=== PATIENT | female | born 1995 | race Caucasian/White ===

== ENCOUNTER 2016-12-30 09:37 | Inpatient (IN) | payer SELFPAY ==
--- NOTE | ~2016-12-30 | HP ---
Unit #: [id number] #: [id number] Patient: KENZIE DUNCAN [id number] [place] [address] [id number] I MR#: [id number] NAME: KENZIE DUNCAN ROOM: [facility] Age: 21 Sex: F Admission Date: 12/30/2016 : 1995 Attending Physician: Gonsalo Mitchell M.D. Admitting Physician: Gonsalo Mitchell M.D. Primary Care Physician: Generic Doctor Not In System HISTORY AND PHYSICAL HISTORY OF PRESENT ILLNESS Kenzie is a 21 year old admitted to [address] [place] [address] with depression and verbalizing wanting to hurt herself. PAST MEDICAL HISTORY Obesity. PAST SURGICAL HISTORY T and A. ALLERGIES No known drug allergies. SOCIAL HISTORY She denies cigarettes, alcohol and illicit drug use. FAMILY HISTORY Medically noncontributory. REVIEW OF SYSTEMS CONSTITUTIONAL: No fever or chills. HEENT: Denies any sore throat, ear pain or runny nose. CARDIOVASCULAR: Denies chest pain, irregular heart rhythm or palpitations. CHEST: Denies shortness of breath or cough. No hemoptysis. GASTROINTESTINAL: Denies nausea, vomiting, diarrhea or chronic constipation. ENDOCRINE: Denies history of increased thirst or urination. No recent significant weight loss or gain. GENITOURINARY: Denies dysuria, frequency, or hematuria. SKIN: Denies any rashes. HEMATOLOGIC: Denies history of increased bleeding or bruising. MUSCULOSKELETAL: Denies any hot, swollen joints. No generalized muscle pain. NEUROLOGIC: Denies problems with vision or speech. No frequent, severe headaches. No numbness, tingling or weakness in any extremities. Denies loss of bladder or bowel control. CURRENT MEDICATIONS 1. Melatonin 5 mg q.h.s. p.r.n. 2. Milk of Magnesia p.r.n. 3. Maalox p.r.n. 4. Tylenol p.r.n. 5. Prozac 30 mg daily. Unit #: [id number] #: [id number] Patient: KENZIE DUNCAN PHYSICAL EXAMINATION GENERAL: Alert, obese, in no apparent distress. VITAL SIGNS: Blood pressure 122/80, heart rate 74, respirations 16, temperature 98.6. WEIGHT: 202. HEIGHT: 5 feet 9 inches. SKIN: Warm and dry without rash or lesion. HEENT: Normocephalic. TMs not viewed. Oral and nasal passages clear. Conjunctivae clear. PERRLA. EOMs intact. NECK: Supple without lymphadenopathy or thyromegaly. HEART: Regular rate and rhythm without murmur. LUNGS: Clear. ABDOMEN: Soft, nontender. : Not done. EXTREMITIES: No evidence of cyanosis, clubbing or edema. Moves all without focal deficit. NEUROLOGICAL: Grossly within normal limits. Cranial Nerves: II: Visual olsen are intact. III, IV AND : Extraocular movements are intact. Pupils are equal, round and reactive to light. V: Facial sensation is grossly normal. VII: Facial movements and expression are normal. VIII: Auditory acuity grossly intact. IX, X: Uvula is midline. Phonation is normal. XI: Patient shrugs shoulders and turns head normally. XII: Tongue protrudes in the midline. Sensory and Motor Function: Sensory and motor sensation is grossly normal. Motor: moves all extremities well. Coordination: Gait is normal. Deep Tendon Reflexes: Intact. IMPRESSION Psychiatric admission. RECOMMENDATIONS PSYCHIATRIC: Per psychiatrist. MEDICAL: See no contraindications to participate in facility's activities. MEDICAL PROGNOSIS Good. MEDICAL CONDITION Stable. Dictated by... Deborah Nunez PDarleneADarlene-Kiana. for Sabra Grullon/pauline TD: 12/30/2016 21:50 JOB #: [id number] Unit #: [id number] #: [id number] Patient: KENZIE DUNCAN HISTORY AND PHYSICAL Page 1 of 1 X Deborah Nunez HISTORY AND PHYSICAL
--- NOTE | ~2016-12-30 | DS ---
Unit #: [id number] #: [id number] Patient: KENZIE DUNCAN [id number] [facility] [address] [place] [address] [id number] MR#: [id number] NAME: KENZIE DUNCAN ROOM: [facility] Age: 21 Sex: F Admission Date: 12/30/2016 : 1995 Discharge Date: 01/01/2017 Attending Physician: Gonsalo Mitchell M.D. Primary Care Physician: Generic Doctor Not In System DISCHARGE SUMMARY REASON FOR ADMISSION The patient is a 29-year-old single white female who is a student at [employer]. She is admitted after she has had feelings of possible suicidal ideation. HOSPITAL COURSE The patient was admitted to the [facility] unit and placed on suicide precautions. Home medications specifically melatonin and Prozac 30 mg daily were continued. The patient reported no suicidal ideation. She had been tearful that she had "thought she was getting to feel suicidal, however, those thoughts did not progressed," and by 01/01, the patient was requesting discharge, and discharge was arranged. FINAL DIAGNOSIS Dysthymic disorder. DISPOSITION ON DISCHARGE The patient is discharged on the following medications, Prozac 30 mg daily for depression. DISCHARGE INSTRUCTIONS No dietary or physical restrictions were placed on the patient at the time of discharge. FOLLOWUP She will follow up through the auspices of community mental health resources in the [facility], and through the auspices of Student Health Services at [employer]. PROGNOSIS Her prognosis is considered fair. Dictated by... Gonsalo Mitchell M.D. CB/waldo TD: 01/02/2017 02:17 JOB #: [id number] Unit #: [id number] #: [id number] Patient: KENZIE DUNCAN DISCHARGE SUMMARY Page 1 of 1 X Gonsalo Mitchell MD X DISCHARGE SUMMARY
--- NOTE | ~2016-12-30 | PA ---
Unit #: [id number] #: [id number] Patient: KENZIE DUNCAN [id number] [facility] [address] [place] [address] [id number] I MR#: [id number] NAME: KENZIE DUNCAN ROOM: [facility] Age: 21 Sex: F Admission Date: 12/30/2016 : 1995 Date of Assessment: 12/31/2016 Attending Physician: Gonsalo Mitchell M.D. Admitting Physician: Gonsalo Mitchell M.D. Primary Care Physician: Generic Doctor Not In System PSYCHIATRIC ASSESSMENT IDENTIFYING INFORMATION The patient is a 21-year-old white female admitted to the [facility] with concerns about possible suicidal ideation. CHIEF COMPLAINT "I feel better today." INFORMANT(S) Patient, reliability is good. HISTORY OF PRESENT ILLNESS The patient is a 21-year-old white female who was admitted to the [facility] after she had presented to [facility] yesterday complaining of possible thoughts of self-harm. The patient reports that she had felt as though the patient has a history of one previous suicide attempt in April of 2015 and was fearful that she was "getting warning signs" that she would again act in her life. The patient reports that she was hospitalized in the past at [place], [place], where she was diagnosed with generalized anxiety disorder, depression, and cyclothymia. Her current psychotropic medication regimen includes only Prozac 30 mg daily. The patient is currently an incoming sophomore at [employer]. She is currently estranged from her parents secondary to a decision to attend college per her report. The patient is currently denying suicidal or homicidal ideation. She denies abuse of any psychoactive substances. PAST PSYCHIATRIC HISTORY As above. PAST MEDICAL HISTORY Significant for history of obesity. MEDICATIONS Prozac. ALLERGIES None reported. FAMILY HISTORY Noncontributory. 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 She denies use of alcohol, tobacco, or street drugs. MENTAL STATUS EXAMINATION Examination at this time reveals the patient to be a slightly obese white female appearing stated age. She is in no apparent physical distress at the time of the examination. She is awake, alert, and oriented in all spheres. Her mood is euthymic, her affect full range. Speech is generally well-coherent. There are no gross deficits in memory or cognition noted. Intelligence is judged to be in the average range based on fund of knowledge. The patient is cooperative throughout the interview. She is currently reporting no suicidal or homicidal ideation and denies any psychotic symptoms. Her judgment and insight appear to be reasonably intact. ASSETS AND LIABILITIES The patient's assets: Motivation for change. Liabilities: Lack of family support. DIAGNOSTIC IMPRESSION Dysthymic disorder. TREATMENT PLAN The patient will remain hospitalized for safety and stabilization and will be watched for 1 further day and continue the patient's previously prescribed medications, specifically Prozac 30 mg daily. ESTIMATED LENGTH OF STAY 1 to 2 days. Followup will take place through the auspices of Student Health Resources at [facility]. Dictated by... Gonsalo Mitchell M.D. TARA/adam TD: 12/31/2016 14:06 JOB #: [id number] PSYCHIATRIC ASSESSMENT Page 1 of 1 X Gonsalo Mitchell MD X PSYCHIATRIC ASSESSMENT
[2016-12-31 11:36] LABS: AMPHETAMINE NEG (NEG); BARBITURATES NEG (NEG); BENZODIAZEPINES NEG (NEG); COCAINE NEG (NEG); MARIJUANA NEG (NEG); OPIATES NEG (NEG); TRICYCLIC ANTIDEPRESSANTS NEG (NEG); U METHADONE NEG (NEG)
[2016-12-31 12:32] LABS: BASOPHIL% 0.7 % (0-2.5); EOSINOPHIL# 0.4 X10e3 (0-0.7); EOSINOPHIL% 6.1 % (0.0-7.0); HEMATOCRIT 38.6 % (35.0-45.0); HEMOGLOBIN 12.7 gm/dL (12.0-16.0); LYMPHOCYTE# 2.2 X10e3 (1.0-3.5); LYMPHOCYTE% 32.2 % (17.0-45.0); MEAN CELL VOLUME 82.4 FL (83-96); MEAN CORPUSCULAR HEMOGLOBIN 27.1 PG (28-34); MEAN CORPUSCULAR HGB CONC 32.9 g/dL (30-36); MONOCYTE# 0.5 X10e3 (0-1.0); MONOCYTE% 6.5 % (3.0-12.0); NEUTROPHIL# 3.8 X10e3 (1.5-7.1); NEUTROPHIL% 54.5 % (40-75); PLATELET COUNT 321 X10e3 (140-420); RED BLOOD COUNT 4.68 X10e (3.90-5.30); RED CELL DISTRIBUTION WIDTH 13.6 % (11.0-15.5)
[2016-12-31 12:46] LABS: DIFF IND NO
[2016-12-31 12:47] LABS: ALBUMIN SERUM 4.1 g/dL (3.5-5.0); BILIRUBIN,TOTAL 0.2 mg/dL (0.2-2.0); BUN/CREATININE RATIO 16.25; CALCIUM SERUM 9.3 mg/dL (8.4-10.2); CREATININE SERUM 0.8 mg/dL (0.6-1.4); GLOM FILT RATE Estimated 106.2 mL/min (>60); PROTEIN TOTAL SERUM 6.9 g/dL (6.0-8.3)
== END 2017-01-01 13:45 | disposition home or self-care (01) | DRG 881 ==
LOC: P2L 15:09
PROVIDERS: Specialist
DX: F34.1 Dysthymic disorder (principal); E66.9 Obesity, unspecified
CPT/HCPCS: 80053; 80307; 84703; 85025